=== PATIENT | female | born 1950 | race Caucasian/White ===

== ENCOUNTER 2025-08-11 11:10 | Emergency (ER) | payer OTHER, SELFPAY ==
[2025-08-11] VITALS (19 sets, daily range): BP systolic 121–170; BP diastolic 60–85; PULSE 65–87; RESP 14–27; TEMP 37.1; O2SAT 92–98; BMI 25.6
--- NOTE | 2025-08-11 12:42 | DI.RAD.S_ITS ---
PROCEDURE: XR CHEST 1V INDICATIONS: Chest Pain TECHNIQUE: One view of the chest was acquired. COMPARISON: None. FINDINGS: Surgical changes and devices: None. Lungs and pleura: Lungs are clear. No pleural effusions or pneumothorax. Mediastinum: Mediastinal contours appear normal. Heart size is normal. Bones and chest wall: No suspicious bony lesions. Overlying soft tissues appear unremarkable. IMPRESSION: No acute cardiopulmonary abnormality is seen. Dictated by: Rubin Caballero M.D. on 08/11/2025 at 13:14 Approved by: Rubin Caballero M.D. on 08/11/2025 at 13:14
--- NOTE | 2025-08-11 12:51 | EKG_ITS ---
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
[2025-08-11 13:09] LABS: Add Manual Diff / Slide Review NO; Hematocrit 42.1 % (36-46); Hemoglobin 14.4 g/dL (12.0-16.0); Lymphocytes Absolute Auto 2000 /uL (1100-4500); Mean Corpuscular HGB Conc 34.3 % (30-36); Mean Corpuscular Hemoglobin 31.5 PG (26-34); Mean Corpuscular Volume 92.0 fL (80-100); Platelet Count 322 X10^3/uL (150-400)
[2025-08-11 13:13] LABS: INR 1.2 (0.9-1.3); Prothrombin Time 13.8 SECONDS (9.4-12.5)
[2025-08-11 13:16] LABS: Alanine Aminotransferase 15 IU/L (<35); Albumin 4.8 g/dL (3.5-5.0); Albumin Globulin Ratio 1.3 (1.0-2.8); Alkaline Phosphatase 105 U/L (38-126); Blood Urea Nitrogen 11 mg/dL (7-17); Calcium 9.3 mg/dL (8.4-10.2); Carbon Dioxide 20 mmol/L (22-32); Chloride 103 mmol/L (98-107); Creatine Kinase 55 U/L (30-135); Estimated Glomerular Filt Rate > 60 mL/min (>60); Globulin 3.7 g/dL (1.7-4.1); Glucose 100 mg/dL (70-99); HEMOLYSIS < 15 (0-50); Lipase 188 U/L (23-300); Magnesium 2.1 mg/dL (1.6-2.3); PTT Partial Thromboplastin Tim 31 SECONDS (25.1-36.5); Potassium 3.7 mmol/L (3.4-5.1); Sodium 134 mmol/L (137-145); Total Protein 8.5 g/dL (6.3-8.2)
[2025-08-11 13:29] LABS: NT-proBNP (BNP-Adult 18+) 38 pg/mL (<450); Troponin I < 0.012 ng/mL (0.01-0.034)
--- NOTE | 2025-08-11 14:13 | DI.CT.S_ITS ---
PROCEDURE: CT HEAD/BRAIN WO CON INDICATIONS: trauma TECHNIQUE: Noncontrast 4.5 mm thick angled axial sections acquired from the foramen magnum to the vertex, with coronal and sagittal reformats. For radiation dose reduction, the following was used: automated exposure control, adjustment of mA and/or kV according to patient size. COMPARISON: None. FINDINGS: Image quality: Diagnostic. CSF spaces: Basal cisterns are patent. No extra-axial fluid collections. Ventricles are normal in size and shape. Brain: No midline shift. No intracranial mass effect or hemorrhage. [place]- white matter interface is normal. Skull and face: Calvarium and visualized facial bones are intact, without suspicious lesions. Sinuses: Visualized sinuses and mastoids are clear. IMPRESSION: No acute intracranial pathology. Approved by: Jarad Rutherford M.D. on 08/11/2025 at 14:00
--- NOTE | 2025-08-11 14:13 | DI.CT.S_ITS ---
PROCEDURE: CT LUMBAR SPINE WO CON INDICATIONS: back pain post trauma TECHNIQUE: Noncontrast 3 mm thick sections acquired from the T12 level to the sacrum. Sagittal and coronal reformats were constructed. COMPARISON: None. FINDINGS: Bones: There is normal bony alignment. No acute vertebral body compression fractures. No suspicious lytic or blastic bony lesions. No pars defects. Convex left thoracolumbar scoliosis. Disc space narrowing, disc bulges and arthropathy noted in the lower lumbar spine. Moderate central stenosis and moderate bilateral foraminal stenosis at L4-5. Soft tissues: No retroperitoneal masses or hematomas. Visualized aorta is normal in caliber. IMPRESSION: No evidence of traumatic injury or malalignment. Degenerative disc disease, arthropathy and thoracolumbar levoscoliosis Approved by: Jarad Rutherford M.D. on 08/11/2025 at 14:03
--- NOTE | 2025-08-11 14:18 | ED.WEAKNESS ---
HPI - Weakness <Dipesh Bird MD - Last Filed: 08/14/25 16:22> General Chief complaint: Weakness Stated complaint: Fluid build up hip to thighs, falls, racing heart Time Seen by Provider: 08/11/25 13:54 Source: patient Mode of arrival: Wheelchair History of Present Illness HPI Narrative: This is a 75-year-old female who does not regularly see doctors, does not have an established primary care provider and he is on no regular prescription medications. The patient is complaining of generalized weakness and 2 falls in the last month. Also says that she feels dizzy and lightheaded. Says that she has fallen down after ?turning too quickly?. Not sure if she hit her head, has not seen a doctor about this since the event. For the last 4-5 days she has also had bilateral blurry vision and she feels like her legs are heavy and swollen as though she is ?retaining fluid.? She is not vomiting, she has not noted any melena, she is not having abdominal pain other than her abdomen feeling ?full?. She is able to urinate spontaneously although feels like she may be urinating frequently. The patient tells me that at age 26 she had [place]. She has had subsequent weakness in her legs since then. At baseline she has ambulated without assistance although recently she has been using a walker. The patient lives alone, she does have a family member that lives nearby. He does not use alcohol or tobacco. Related Data Allergies Allergy/AdvReac Type Severity Reaction Status Date / Time naproxen (From Aleve) Allergy Severe Anaphylaxis Verified 08/11/25 11:44 <Lida Lovell MD - Last Filed: 08/11/25 23:52> History of Present Illness HPI Narrative: This is a 75-year-old female who does not regularly see doctors, does not have an established primary care provider and she is on no regular prescription medications. The patient is complaining of generalized weakness and 2 falls in the last month. Also says that she feels dizzy and lightheaded. Says that she has fallen down after ?turning too quickly?. Not sure if she hit her head, has not seen a doctor about this since the event. For the last 4-5 days she has also had bilateral blurry vision and she feels like her legs are heavy and swollen as though she is ?retaining fluid.? She is not vomiting, she has not noted any melena, she is not having abdominal pain other than her abdomen feeling ?full?. She is able to urinate spontaneously although feels like she may be urinating frequently. The patient tells me that at age 26 she had [place]. She has had subsequent weakness in her legs since then. At baseline she has ambulated without assistance although recently she has been using a walker. The patient lives alone, she does have a family member that lives nearby. sHe does not use alcohol or tobacco. Patient History <Dipesh Bird MD - Last Filed: 08/14/25 16:22> Social History Smoking Status: Never smoker Smoking Status: Never smoker Exam <Dipesh Bird MD - Last Filed: 08/14/25 16:22> Narrative Exam Narrative: Talkative elderly female who appears to be in no distress. Vital signs reviewed and reassuring. Head is atraumatic, does have some tenderness of the midline cervical spine. Pupils are equal round and reactive extraocular movement are intact she has some nystagmus which is not strictly horizontal. Lungs are clear Heart sounds regular rhythm rate no murmur rub or gallop Abdomen normal bowel sounds soft no tenderness nondistended Rectal exam nontender normal perineal sensation normal sphincter tone guaiac positive brown stool, rectal exam with warehouse technician Lower extremities minimal to no pedal edema no pitting edema warm appear to be well perfused She has intact light touch sensation in the lower extremities, knee jerks are symmetric can trace, Motor exam remarkable for proximal and distal weakness in the lower extremities, proximal and distal weakness in the upper extremities. Diffusely she has had about 4/5. Patient is alert and fully oriented Initial Vital Signs Initial Vital Signs: Vital Signs Temperature 98.7 F 08/11/25 11:33 Pulse Rate 85 08/11/25 11:33 Respiratory Rate 16 08/11/25 11:33 Blood Pressure 154/85 H 08/11/25 11:33 Pulse Oximetry 95 08/11/25 11:33 Oxygen Delivery Method Room Air 08/11/25 11:33 <Lida Lovell MD - Last Filed: 08/11/25 23:52> Initial Vital Signs Initial Vital Signs: Vital Signs Temperature 98.7 F 08/11/25 11:33 Pulse Rate 85 08/11/25 11:33 Respiratory Rate 16 08/11/25 11:33 Blood Pressure 154/85 H 08/11/25 11:33 Pulse Oximetry 95 08/11/25 11:33 Oxygen Delivery Method Room Air 08/11/25 11:33 Course <Dipesh Bird MD - Last Filed: 08/14/25 16:22> Orders Ordered: Discontinued Medications Diazepam (Diazepam 10 Mg/2 Ml Syringe) 5 mg IV NOW ONE Stop: 08/11/25 17:55 Last Admin: 08/11/25 18:02 Dose: 5 mg Documented By: JOSEPH Diazepam (Diazepam 10 Mg/2 Ml Syringe) 2 mg IV NOW ONE Stop: 08/11/25 18:06 Last Admin: 08/11/25 18:09 Dose: 2 mg Documented By: JOSEPH Vital Signs Vital signs: Vital Signs - 8 hr 08/11/25 16:00 08/11/25 16:00 08/11/25 16:30 Pulse Rate 68 Respiratory Rate 22 Blood Pressure 156/72 H 165/70 H Pulse Oximetry 98 Oxygen Delivery Method 08/11/25 16:30 08/11/25 17:00 08/11/25 17:00 Pulse Rate 70 65 Respiratory Rate 23 19 Blood Pressure 142/64 H Pulse Oximetry 97 96 Oxygen Delivery Method 08/11/25 18:07 08/11/25 18:08 08/11/25 18:08 Pulse Rate 87 Respiratory Rate 17 Blood Pressure 143/80 H Pulse Oximetry 98 96 Oxygen Delivery Method Room Air 08/11/25 18:40 08/11/25 18:41 08/11/25 18:41 Pulse Rate 75 74 Respiratory Rate Blood Pressure 135/60 Pulse Oximetry 96 97 Oxygen Delivery Method 08/11/25 19:00 08/11/25 19:00 08/11/25 19:30 Pulse Rate 68 67 Respiratory Rate 14 Blood Pressure 121/64 Pulse Oximetry 94 98 Oxygen Delivery Method Room Air 08/11/25 19:30 Pulse Rate Respiratory Rate Blood Pressure 133/75 Pulse Oximetry Oxygen Delivery Method <Lida Lovell MD - Last Filed: 08/11/25 23:52> Orders Ordered: Discontinued Medications Diazepam (Diazepam 10 Mg/2 Ml Syringe) 5 mg IV NOW ONE Stop: 08/11/25 17:55 Last Admin: 08/11/25 18:02 Dose: 5 mg Documented By: JOSEPH Diazepam (Diazepam 10 Mg/2 Ml Syringe) 2 mg IV NOW ONE Stop: 08/11/25 18:06 Last Admin: 08/11/25 18:09 Dose: 2 mg Documented By: JOSEPH Vital Signs Vital signs: Vital Signs - 8 hr 08/11/25 16:00 08/11/25 16:00 08/11/25 16:30 Pulse Rate 68 Respiratory Rate 22 Blood Pressure 156/72 H 165/70 H Pulse Oximetry 98 Oxygen Delivery Method 08/11/25 16:30 08/11/25 17:00 08/11/25 17:00 Pulse Rate 70 65 Respiratory Rate 23 19 Blood Pressure 142/64 H Pulse Oximetry 97 96 Oxygen Delivery Method 08/11/25 18:07 08/11/25 18:08 08/11/25 18:08 Pulse Rate 87 Respiratory Rate 17 Blood Pressure 143/80 H Pulse Oximetry 98 96 Oxygen Delivery Method Room Air 08/11/25 18:40 08/11/25 18:41 08/11/25 18:41 Pulse Rate 75 74 Respiratory Rate Blood Pressure 135/60 Pulse Oximetry 96 97 Oxygen Delivery Method 08/11/25 19:00 08/11/25 19:00 08/11/25 19:30 Pulse Rate 68 67 Respiratory Rate 14 Blood Pressure 121/64 Pulse Oximetry 94 98 Oxygen Delivery Method Room Air 08/11/25 19:30 Pulse Rate Respiratory Rate Blood Pressure 133/75 Pulse Oximetry Oxygen Delivery Method MDM - Weakness <Dipesh Bird MD - Last Filed: 08/14/25 16:22> Lab Data 08/11/25 12:45 08/11/25 12:45 Labs: Lab Results 08/11/25 Range/Units 12:45 WBC 9.1 (4.5-11.0) X10^3/uL RBC 4.57 (4.0-5.2) X10^6/uL Hgb 14.4 (12.0-16.0) g/dL Hct 42.1 (36-46) % MCV 92.0 (80-100) fL MCH 31.5 (26-34) PG MCHC 34.3 (30-36) % RDW 13.4 (11.6-14.8) % Plt Count 322 (150-400) X10^3/uL Neut % (Auto) 70.7 (50-75) % Lymph % (Auto) 21.6 L (25-40) % [place] % (Auto) 6.4 (3-14) % Eos % (Auto) 0.5 L (2-4) % Baso % (Auto) 0.8 (0-2) % Neut # (Auto) 6400 (8404-1693) /uL Lymph # (Auto) 2000 (5280-7621) /uL [place] # (Auto) 600 (0-900) /uL Eos # (Auto) 0 (0-450) /uL Baso # (Auto) 100 (0-100) /uL PT 13.8 H (9.4-12.5) SECONDS INR 1.2 (0.9-1.3) APTT 31 (25.1-36.5) SECONDS Sodium 134 L (137-145) mmol/L Potassium 3.7 (3.4-5.1) mmol/L Chloride 103 (98-107) mmol/L Carbon Dioxide 20 L (22-32) mmol/L BUN 11 (7-17) mg/dL Creatinine 0.76 (0.52-1.04) mg/dL Estimated GFR > 60 (>60) mL/min BUN/Creatinine Ratio 14.5 (6-22) Glucose 100 H (70-99) mg/dL Calcium 9.3 (8.4-10.2) mg/dL Magnesium 2.1 (1.6-2.3) mg/dL Total Bilirubin 0.5 (0.2-1.3) mg/dL AST 26 (14-36) IU/L ALT 15 (<35) IU/L Alkaline Phosphatase 105 (38-126) U/L Total Creatine Kinase 55 (30-135) U/L Troponin I < 0.012 (0.01-0.034) ng/mL NT-Pro-B Natriuret Pep 38 (<450) pg/mL Total Protein 8.5 H (6.3-8.2) g/dL Albumin 4.8 (3.5-5.0) g/dL Globulin 3.7 (1.7-4.1) g/dL Albumin/Globulin Ratio 1.3 (1.0-2.8) Lipase 188 (23-300) U/L Urine Dip Bedside Urine Glucose Negative Bedside Urine Bilirubin - Negative Bedside Urine Ketone ++ 40 Urine Specific [place] 1.010 Bedside Urine Occult Blood - Negative Bedside Urine pH 6.0 Bedside Urine Protein - Negative Bedside Urine Urobilinogen - Negative Bedside Urine Nitrite - Negative Bedside Urine Leukocytes - Negative Esterase MDM Narrative Medical decision making narrative: Signed out to Dr. Lovell at 1515 shift change <Lida Dudley Lovell MD - Last Filed: 08/11/25 23:52> Lab Data Labs: Lab Results 08/11/25 Range/Units 12:45 WBC 9.1 (4.5-11.0) X10^3/uL RBC 4.57 (4.0-5.2) X10^6/uL Hgb 14.4 (12.0-16.0) g/dL Hct 42.1 (36-46) % MCV 92.0 (80-100) fL MCH 31.5 (26-34) PG MCHC 34.3 (30-36) % RDW 13.4 (11.6-14.8) % Plt Count 322 (150-400) X10^3/uL Neut % (Auto) 70.7 (50-75) % Lymph % (Auto) 21.6 L (25-40) % [place] % (Auto) 6.4 (3-14) % Eos % (Auto) 0.5 L (2-4) % Baso % (Auto) 0.8 (0-2) % Neut # (Auto) 6400 (1514-7065) /uL Lymph # (Auto) 2000 (1014-4874) /uL [place] # (Auto) 600 (0-900) /uL Eos # (Auto) 0 (0-450) /uL Baso # (Auto) 100 (0-100) /uL PT 13.8 H (9.4-12.5) SECONDS INR 1.2 (0.9-1.3) APTT 31 (25.1-36.5) SECONDS Sodium 134 L (137-145) mmol/L Potassium 3.7 (3.4-5.1) mmol/L Chloride 103 (98-107) mmol/L Carbon Dioxide 20 L (22-32) mmol/L BUN 11 (7-17) mg/dL Creatinine 0.76 (0.52-1.04) mg/dL Estimated GFR > 60 (>60) mL/min BUN/Creatinine Ratio 14.5 (6-22) Glucose 100 H (70-99) mg/dL Calcium 9.3 (8.4-10.2) mg/dL Magnesium 2.1 (1.6-2.3) mg/dL Total Bilirubin 0.5 (0.2-1.3) mg/dL AST 26 (14-36) IU/L ALT 15 (<35) IU/L Alkaline Phosphatase 105 (38-126) U/L Total Creatine Kinase 55 (30-135) U/L Troponin I < 0.012 (0.01-0.034) ng/mL NT-Pro-B Natriuret Pep 38 (<450) pg/mL Total Protein 8.5 H (6.3-8.2) g/dL Albumin 4.8 (3.5-5.0) g/dL Globulin 3.7 (1.7-4.1) g/dL Albumin/Globulin Ratio 1.3 (1.0-2.8) Lipase 188 (23-300) U/L Urine Dip Bedside Urine Glucose Negative Bedside Urine Bilirubin - Negative Bedside Urine Ketone ++ 40 Urine Specific [place] 1.010 Bedside Urine Occult Blood - Negative Bedside Urine pH 6.0 Bedside Urine Protein - Negative Bedside Urine Urobilinogen - Negative Bedside Urine Nitrite - Negative Bedside Urine Leukocytes - Negative Esterase Imaging Data mr brain: Radiologist Impression: PROCEDURE: MR HEAD/BRAIN WO CON INDICATIONS: left side weakness TECHNIQUE: Non-contrast axial T1 spin echo, axial T2 fast spin echo, sagittal and axial FLAIR, coronal T2 fast spin echo, axial gradient echo, axial diffusion and ADC through the brain. COMPARISON: [facility], CT, CT HEAD/BRAIN WO CON, 08/11/2025, 14:22. FINDINGS: Image quality: Excellent. CSF spaces: Ventricles appear symmetric in size and shape. Basal cisterns are patent. No extra-axial fluid collections. Brain: No intracranial bleeds or mass effects. There is cerebral volume loss for age. There are periventricular and deep white matter chronic small vessel ischemic changes. Brainstem appears normal. Diffusion-weighted images show no acute infarct. No chronic ischemic insults. Normal intravascular flow voids are present. Skull and face: Calvarial bone marrow is normal in signal. Orbits are normal. Sinuses: Scattered [id number] mucosal thickening can be seen within the paranasal sinuses. No abnormal fluid is seen within the mastoid air cells. IMPRESSION: No findings of acute or subacute infarction can be seen. Note is made of age-appropriate brain parenchymal volume loss and chronic small vessel ischemic changes. Dictated by: Yovani Prado M.D. on 08/11/2025 at 17:49 MDM Narrative Medical decision making narrative: Signed out to Dr. Lovell at 1515 shift change CC: Progressive weakness upper and lower extremities Complicating co-morbidities: Lives independently, has been falling, does not typically see physicians Data collected from: patient , family later contacted they are concerned that she may have an ankle injury that is causing her falls Medical records reviewed: No medical records Differential considered: Electrolyte abnormality, stroke, neoplastic process [place] Exam documented above, pertinent findings include: Able to speak in full sentences, no obvious distress. Neurologically she has 1+ reflexes in upper and lower extremities. Her ankle exam is bilaterally are entirely normal with no pain with range of motion, no swelling or warmth. She complains of edema and objectively I do not appreciate ascites or any edema. She is certainly no lower extremity edema. Her abdomen is soft, heart and lungs are benign Lab Test results independently reviewed as above. Pertinent findings: White count is unremarkable Chemistries are relatively reassuring. Renal function is appropriate. Total protein is slightly high at 8.5 Lipase is normal Independently reviewed EKG: Sinus rhythm at a rate of 71 with no acute ischemia Imaging studies independently reviewed: Chest x-ray is normal Head CT does not show significant pathology Lumbar spine shows minimal finding Cervical spine CT shows no evidence of fracture or traumatic alignment. She does have degenerative disc disease and arthropathy associated with grade 1 degenerative spondylolisthesis at C4-5 with moderate central stenosis Re-evaluations and discussion: In discussing findings with the patient again. I am having difficulty finding a Singulair diagnostic explanation. No intracranial hemorrhage no obvious stroke. Moderate reflexes upper and lower extremities argue against myasthenia gravis as well as any type of central cord syndrome from the mild stenosis at C4-5. She has some interesting fixed belief regarding her health and overall medical care. She seems surprised that any of her previous injuries of actually healed, that her previous history of anemia has resolved. She was surprised that her blood pressure was relatively normal during our exam as it was well over ?500? earlier today. I am not finding infection, significant anemia, liver function kidney function or other explanation. She is having no headaches, neck pain or fevers to suggest meningitis. In getting her up to walk, she has some confusion in how to use the walker, her left leg has significant weakness and she has tends to pull her left foot forward. She states she can not step forward on her left leg. With a walker she is able to shuffle to the bathroom with some instability. She states that it has been this bad for at least 4 days. She has somebody that comes in an at least gets her some tea and toast but she is not able to get up and around to get to food or other self-care. Her family was concerned that she may have injured her left ankle because her left side seemed a bit different. On clinical exam there was no pain or tenderness with her left ankle. MRI brain does not show acute changes In further questioning her, she notes that she has stopped driving about 5 years ago because of lower leg weakness. She typically has groceries delivered and does not get to the grocery store. In further questioning diet it sounds like tea and toast is her primary sustenance, she is a vegetarian and considers this healthy. When asked about any type of protein she mentioned occasional yogurt. At this point, I am not convinced that her complaints are actually new. Her continued complaints of significant fluid overload around her hips and thighs has no objective confirmation. I do not believe that this is infection, I do not believe this is [place]. I do think that protein malnutrition and extraordinary sedentary lifestyle may be contributing to her overall progressive weakness and decline. I have recommended a primary care physician and she may benefit from outpatient neurologic consultation. There is no indication for hospitalization at this time Discharge Plan Departure Patient Disposition: Home Clinical Impression: Weakness, Falls Activity Restrictions/Additional Instructions: Thank you for coming in today I hear your complaints of weakness, fluid retention around her hips and thighs and inability to stand. Your workup was quite thorough today. There was no sign of infection, kidney problems, liver problems, congestive heart failure or any issue that it would explain the your sensation of fluid retention. Objectively, on your physical exam, I do not appreciate significant fluid retention. Your reflexes are somewhat diminished but still present and certainly not hyperreflexic. Your CT scans do not show any bleeding masses tumors or abnormalities in your brain. You have some mild stenosis in the middle portion of your neck that looks like it is chronic and due to chronic arthritis. Your lumbar spine does not show any significant abnormalities that might explain your weakness overall. We did an MRI of your brain and you have not had a stroke. Sometimes the best we are able to do in the emergency department is tell you all the things that you do not have. I believe this is where we are today. I do believe you need to follow up with a primary care physician and may need a outpatient neurologic consultation to actually get to a true diagnosis to best help you. you can contact [facility] resource line at [phone]. They can help get you set up with a physician in our local community In the meantime, please do make sure that you are continuing to use your walker and eating a regular and healthy diet. You mentioned that you typically have tea and toast, that is okay for 1 meal however you need to have some protein throughout the day and some amount of that. You may find that you feel better and do not have the sense that you retaining water so much if you do add some protein to your diet. This can be in the form of additional yogurt, eggs, rice/beans if you choose to avoid meat. If you find that you are getting worse or develop any new symptoms, please feel free to return to the emergency department for further evaluation. Referrals: Drea Swenson MD [Primary Care Provider, Internal Medicine] Stand Alone Forms: Patient Portal/API
--- NOTE | 2025-08-11 14:21 | DI.CT.S_ITS ---
PROCEDURE: CT CERVICAL SPINE WO CON INDICATIONS: neck pain post fall TECHNIQUE: Noncontrast 3 mm thick sections acquired from the skull base to the T4 level. Sagittal and coronal reformats were then constructed. For radiation dose reduction, the following was used: automated exposure control, adjustment of mA and/or kV according to patient size. COMPARISON: None. FINDINGS: Image quality: Excellent. Bones: No fractures or dislocations. Visualized superior ribs are intact. Degenerative grade 1 anterior spondylolisthesis C4-C5. Degenerative disc disease and arthropathy particularly in the lower cervical spine is present. 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 Least moderate central stenosis C5-6 and C6-7. Soft tissues: Prevertebral soft tissues are normal in thickness. No paravertebral hematomas. No apical pneumothoraces. IMPRESSION: No evidence of fracture or traumatic malalignment. Degenerative disc disease and arthropathy associated with grade 1 degenerative spondylolisthesis at C4-5 with moderate central stenosis. Approved by: Jarad Rutherford M.D. on 08/11/2025 at 14:15
--- NOTE | 2025-08-11 17:38 | DI.MRI.S_ITS ---
PROCEDURE: MR HEAD/BRAIN WO CON INDICATIONS: left side weakness TECHNIQUE: Non-contrast axial T1 spin echo, axial T2 fast spin echo, sagittal and axial FLAIR, coronal T2 fast spin echo, axial gradient echo, axial diffusion and ADC through the brain. COMPARISON: [facility], CT, CT HEAD/BRAIN WO CON, 08/11/2025, 14:22. FINDINGS: Image quality: Excellent. CSF spaces: Ventricles appear symmetric in size and shape. Basal cisterns are patent. No extra-axial fluid collections. Brain: No intracranial bleeds or mass effects. There is cerebral volume loss for age. There are periventricular and deep white matter chronic small vessel ischemic changes. Brainstem appears normal. Diffusion-weighted images show no acute infarct. No chronic ischemic insults. Normal intravascular flow voids are present. Skull and face: Calvarial bone marrow is normal in signal. Orbits are normal. Sinuses: Scattered [id number] mucosal thickening can be seen within the paranasal sinuses. No abnormal fluid is seen within the mastoid air cells. IMPRESSION: No findings of acute or subacute infarction can be seen. Note is made of age-appropriate brain parenchymal volume loss and chronic small vessel ischemic changes. Dictated by: Yovani Prado M.D. on 08/11/2025 at 17:49 Approved by: Yovani Prado M.D. on 08/11/2025 at 17:51
--- NOTE | 2025-08-11 18:38 | PC.NURSE ---
Pt back from MRI. Resting quietly in bed.
--- NOTE | 2025-08-11 20:01 | PC.NURSE ---
Patient up for discharge at 1950 but ride will not be available until closer to [address]. Per Dr Lovell patient to stay in room until then but has been discharged, IV removed.
== END 2025-08-11 21:58 | disposition home or self-care (01) ==
PROVIDERS: Emergency Medicine; Emergency Provider Emergency Medicine; PCP Internal Medicine
DX: R53.1 Weakness (principal); R42 Dizziness and giddiness; R29.6 Repeated falls; R60.9 Edema, unspecified
CPT/HCPCS: 36415; 70450; 70551; 71045; 72125; 72131; 80053; 81003; 82550; 83690; 83735; 83880; 84484; 85025; 85610; 85730; 93005; 93010; 96374; 99284; J3360